=== PATIENT | female | born 1945 | race Caucasian/White ===

== ENCOUNTER 2016-08-27 11:15 | Day surgery (SDC) | payer MEDICARE ==
--- NOTE | ~2016-08-27 | EGD ---
EGD REPORT [facility] [address] [address] NAME: MARGARITA PEACOCK : [birth year] STATUS : REG [facility] PAT#: [id number] AGE: 71 ADM/REG DATE : 08/27/16 MR#: [id number] REPORT SERV DATE: 08/27/16 DICTATED BY: DATE: REPORT STATUS : Draft TRANSCRIBED BY: [employer] DATE: 08/27/16 [facility] Patient Name: Margarita Peacock Date of : 1945 Attending MD: KATIA OCHOA MD Procedure Date No Time: 08/27/2016 Procedure: Upper GI endoscopy Indications: Dysphagia Referring MD: GONZALEZ MOSQUERA MD Medicines: Monitored Anesthesia Care Complications: No immediate complications. Procedure: Pre-Anesthesia Assessment: - ASA Grade Assessment: III - A patient with severe systemic disease. After obtaining informed consent, the endoscope was passed under direct vision. Throughout the procedure, the patient's blood pressure, pulse, and oxygen saturations were monitored continuously. The GIF [id number] was introduced through the mouth, and advanced to the third part of duodenum. The upper GI endoscopy was accomplished without difficulty. The patient tolerated the procedure well. Findings: The examined esophagus was normal. There is no endoscopic evidence of Zee's esophagus, areas of erosion, ulcerations or varices in the entire esophagus. The entire examined stomach was normal. There is no endoscopic evidence of inflammation, mucosal abnormalities, ulceration or varices in the entire examined stomach. The examined duodenum was normal. There is no endoscopic evidence of inflammation, mucosal abnormalities or ulceration in the entire examined duodenum. The cardia and gastric fundus were normal on retroflexion. A guidewire was placed and the scope was withdrawn. Dilation was performed in the entire esophagus with a Savary dilator with no resistance at 57 Fr. Impression: - Normal esophagus. - Normal stomach. - Normal examined duodenum. Recommendation: - Patient has a contact number available for emergencies. The signs and symptoms of potential delayed complications were discussed with the patient. Return to EGD REPORT [facility] [address] [id number] NAME: MARGARITA PEACOCK : [birth year] STATUS : REG [facility]#: [id number] AGE: 71 ADM/REG DATE : 08/27/16 MR#: [id number] REPORT SERV DATE: 08/27/16 DICTATED BY: DATE: REPORT STATUS : Draft TRANSCRIBED BY: [employer] DATE: 08/27/16 normal activities tomorrow. Written discharge instructions were provided to the patient. - Return to previous diet. - Discharge patient to home. - Continue present medications. Procedure Code(s): --- Professional --- 39814, Esophagogastroduodenoscopy, flexible, transoral; with insertion of guide wire followed by passage of dilator(s) through esophagus over guide wire Diagnosis Code(s): --- Professional --- R13.10, Dysphagia, unspecified CPT copyright 2013 [employer]. All rights reserved. The codes documented in this report are preliminary and upon farm machinery assembler review may be revised to meet current compliance requirements. KATIA OCHOA MD 08/27/2016 3:31 PM This report has been signed electronically. Number of Addenda: 0 Note Initiated On: 08/27/2016 3:09 PM Scope Withdrawal Time 0 hours 0 minutes 0 seconds [id number] [id number]
[~2016-08-27 11:15] MED LIST: ADVAIR100 INH; AMITIZA8 MCG PO; ANUSOL-HC25 MG PR; ASTELIN NAS; B12250T PO; BENICAR20 PO; BIOTIN5 MG PO; CLOBETASOL0.051 EX; CRESTOR10 PO; CYMBALTA20 PO; CYMBALTA60 PO; DIOVAN HCT160 MG/25 PO; DITRO5 PO; EFFEXOR100 MG PO; ENABLEX7.5 PO; ESTRACE VAGIN42.5 GM V; EYE DROPS; FIORICET 50-301 EACH PO; FIORICET OR; FLEX PO; FLOVENT110 INH; GELATIN OR; GELATIN PO; HEMOCYTET PO; HYDROCHLOROT25 MG PO; KLONO1 PO; KLONO5 PO; LACTAID OR; LACTAID PO; LEVOTHYROXIN112 MCG PO; NEXIUM40 PO; NYSTATPOW TOP; ONGLYZA PO; ONGLYZA5 MG PO; PRAVAC PO; PRIN10 PO; PROBIOTIC PO; PROTONIX PO; PROVHFA INH; RESTASIS OPH; SALAGEN5 M1 OR; SAMOLINIC OR; SPECTAZOLE TOP; SYN.05 PO; TESS PO; TRAZODONE150 MG PO; TRIAMCINOLONE C80 GM TOP; VITAMIN B-121000 MC1 SL; VITAMIN C100 MG PO; VITAMIN D1000 UNI1 PO; VITAMINS; ZYRTEC ALLGY10 MG PO; [UNRECOGNIZED DRUG - OTHER]; [UNRECOGNIZED DRUG - OTHER]; [UNRECOGNIZED DRUG - OTHER]; [UNRECOGNIZED DRUG - OTHER] OR; albuterol INH
== END 2016-08-27 23:59 | disposition home or self-care (01) ==
LOC: DMU 11:15
PROVIDERS: Internal Medicine Gastroenterology
PROC: 0D758ZZ Dilation of Esophagus, Via Natural or Artificial Opening Endoscopic (ICD-10-PCS; principal; 2016-08-27 13:00)
DX: R13.10 Dysphagia, unspecified (principal); I10 Essential (primary) hypertension; J45.909 Unspecified asthma, uncomplicated; G47.33 Obstructive sleep apnea (adult) (pediatric); M06.9 Rheumatoid arthritis, unspecified; Z99.81 Dependence on supplemental oxygen; Z88.5 Allergy status to narcotic agent; Z88.1 Allergy status to other antibiotic agents; Z88.8 Allergy status to other drugs, medicaments and biological substances
CPT/HCPCS: 82962